=== PATIENT | male | born 1965 | race Caucasian/White ===

== ENCOUNTER 2023-03-05 14:42 | Outpatient (CLI) | payer BC, SELFPAY | END 2023-03-05 14:43 | disposition home or self-care (01) | PROVIDERS: PCP Family Medicine; Visit Provider Family Medicine | DX: I10 Essential (primary) hypertension (principal); E66.9 Obesity, unspecified; N32.0 Bladder-neck obstruction; Z13.1 Encounter for screening for diabetes mellitus; Z13.6 Encounter for screening for cardiovascular disorders | CPT/HCPCS: 80048; 80061; 84153 ==

== ENCOUNTER 2024-06-13 10:43 | Outpatient (CLI) | payer BC, SELFPAY | END 2024-06-13 10:44 | disposition home or self-care (01) | PROVIDERS: PCP Family Medicine; Visit Provider Family Medicine | DX: I10 Essential (primary) hypertension (principal); R97.20 Elevated prostate specific antigen [PSA]; Z12.5 Encounter for screening for malignant neoplasm of prostate | CPT/HCPCS: 80048; 84153 ==

== ENCOUNTER 2024-07-07 06:11 | Day surgery (SDC) | payer BC, SELFPAY ==
--- OUTSIDE RECORDS SUMMARY | 2024-07-07 06:15 | XMS_ITS | Data Portability ---
Author Organization MD - [facility] Address [address] [facility] [address] [place] [address] Care Team Providers Care Computer Systems Administrator Name Role Phone KHUSHBOO SETHI Primary Care Provider [phone] Assessment Encounter Date Assessment Date Assessment LastModified by Organization Details LastModified Time 03/20/2023 03/20/2023 57 Y/O MALE, SEEN FOR AND ELEVATED PSA OF 14. ALSO STRONG FAMILY HX FOR CAP. COLLIN 40G . MILD VOIDING SX.S. STARTED ON FLOMAX WITH SOME IMPROVEMENT. REVIEWED RECORDS, LABS PRESENT DURING INTERVIEW PLAN SCHEDULE TRUS /BX. OF THE PROSTATE.PROC EDURE EXPLAINED IN DETAIL. ALL QUESTIONS ANSWERED. Not available 03/20/2023 10:10:13 04/17/2023 04/17/2023 57 Y/O MALE, STRONG FAMILY HX FOR CAP. ELEVATED PSA OF 14. SIZE 60G. PSA DENSITY ELEVATED. TRUS/BX WENT WELL. PLAN RUTINE POST PROCEDURE INSTRUCTIONS, LIMITATIONS, SCRIPTS, WILL CALL RESULTS WHEN AVAILABLE. Not available 04/17/2023 10:00:34 Plan of Treatment Reminders Order Date Submit Date Provider Last Modified By Organization Details Last Modified Time Details Appointments None recorded. Lab None recorded. Referral None recorded. Procedures None recorded. Surgeries None recorded. Imaging None recorded. Medication Orders ceftriaxone 1 gram solution for injection 2022 023 [id number], [address] [place], [address], 09:52:56 Patient TargetsNo targets recorded. Patient Instructions Encounter Date Encounter Id Patient Instructions Last Modified By Organization Details Last Modified Time 04/17/2023 [id number] POST TRUS/BX PRECAUTIONS Not available 04/17/2023 10:01:07 Reason for Referral None Reported. Results Created Date Observation Date Name Description Value Unit Range Abnormal Flag Note LastModifiedBy Organization Detail LastModifiedTime Result Notes None recorded. Problems Name Problem SNOMED Code Status Onset Date Resolution Date Notes Provider Name and Address Organization Details Recorded Time Prostate specific antigen above reference range 588441183 Active 023 Prakash Baker MD [address] [place] [address],[address], [place], [address], [facility] 3 10:09:37 Problem Notes None recorded. Procedures Surgical History Date Name Laterality Status Provider Name and Address Organization Details Recorded Time 3 RU Prostate Bx completed Prakash Baker MD [address] [place] [address],[address], [place], [address] [place] [address], [facility] 04/17/2023 09:58:41 Colonoscopy completed Prakash Baker MD [address] [place] [address],[address], [place], [place], [address] [place] [address], [facility] 03/20/2023 09:33:43 Imaging Results None recorded. Procedure Notes None recorded. Medical Equipment None Reported. Allergies No known drug allergies Medications Name Sig Start Date Stop Date Status Note LastModified by Organization Details LastModified Time losartan 50 mg tablet TAKE 1 TABLET BY MOUTH EVERY DAY active Not Available Not Available No t Available ceftriaxone 1 gram solution for injection Take 1 g by injection route. 2022 active Not Available Not Available Not Avai lable tamsulosin 0.4 mg capsule TAKE 1 CAPSULE BY MOUTH EVERY DAY AT BEDTIME active Not Available Not Available N ot Available levofloxacin 500 mg tablet TAKE 1 TABLET EVERY 24 HOURS BY ORAL ROUTE DIRECTED FOR 3 DAYS. active Not Available Not Available No t Available Vitals Date Recorded Body height Provider Name an d Address Organization Details Last Updated DateTime 03/20/2023 177.8 cm Savanna Andrews [address] [place] [address],[address], [place], [address], [facility] 03/20/2023 09:32:15 Date Recorded Body mass index (BMI) Body weight Provider Name and Address Organization Details Last Updated DateTime 03/20/2023 36.6 kg/m2 550820.05 g Prakash Baker MD [address] [facility],[address], [place], [address], [facility] 03/20/2023 09:32:19 Date Recorded Body height Provider Name an d Address Organization Details Last Updated DateTime 04/17/2023 177.8 cm Ck Aleena [facility] 1 06/17/2022 09:48:15 Social History Question Answer Notes LastModified by Organizat ion Details LastModified Time Tobacco Smoking Status Former Smoker Prakash Baker MD [address] [facility],[address], [place], [address], [facility] 03/20/2023 09:33:38 What Is Your Level Of Alcohol Consumption? Occasional Information not available 03/20/2023 What Is Your Level Of Caffeine Consumption? Occasional Information not available 03/20/2023 When Did You Quit Smoking? 16+yearssincel astdominic Information not available 03/20/2023 What Was The Date Of Your Most Recent Tobacco Screening? 03/20/2023 Information not available 03/20/2023 Have You Ever Been Counseled For Unhealthy Alcohol Use? No Information not available 03/20/2023 Do You Use Any Illicit Or Recreational Drugs? No Information not available 03/20/2023 Has Tobacco Cessation Counseling Been Provided? No Information not available 03/20/2023 Do You Or Have You Ever Used Any Other Forms Of Tobacco Or Nicotine? No Information not available 03/20/2023 How Many Days In The Past Year Have You Consumed 5 Or More Drinks? 0 Information no t available 03/20/2023 Sex: Unknown Functional Status None recorded. Mental Status None recorded. Family History Relationship Description Onset Age of this Age Resolved Age Notes LastModified by Organization Details LastModified Time Father Family history of malignant neoplasm of prostate Not available 2022 09:33:05 Paternal Grandmother Family history of malignant neoplasm of prostate Not available 2022 09:33:05 Mother Malignant lymphoma Not available 2022 09:33:16 Brother Family history of malignant neoplasm of prostate Not available 2022 09:33:20 Medical History Condition Response Other N High Blood Pressure N Kidney Stones N Depression N Lung Disease N GERD/Acid Reflux N Sexually Transmitted Infection N Cancer N High Cholesterol Y Diabetes N Bleeding Disorder N Heart Disease N Past Encounters Encounter ID Performer Location Encounter Start Date Encounter Closed Date Diagnosis/Indication Diagnosis SNOMED-CT Code Diagnosis ICD10 Code Diagnosis Note [id number] MD ISSAC Andrews_Anna [address] [place] [address] 03/20/2023 09:19:20 03/30/2023 13:16:33 Prostate specific antigen above reference range 398790573 R97.20 Family his tory of malignant neoplasm of prostate 753473459 Z80.42 [id number] MD ISSAC Andrews_Anna [address] [place] [address] 04/17/2023 09:15:25 05/10/2023 09:04:47 Prostate specific antigen above reference range 834945246 R97.20 Health Concerns Section Related Observation LastModified by Organization Detai ls LastModified Time None Recorded Concern Status LastModified by Organization Details LastModified Time None Recorded Advance Directives Directive None Recorded Payers Encounter Date Sequence Insurance Name Policy Number Policy Bass Covered Member ID Bass Member ID Guarantor Name 03/20/2023 1 [facility] [employer] [employer] (PPO) [id number] Rosas Marlow [id number] Rosas Marlow 04/17/2023 1 [facility]) [id number] Rosas Marlow [id number] Rosas Marlow Notes Date Note Type Note Provider Name and Address Organization Details Recorded Time 03/20/2023 text/html PATIENT HERE FOR AN ELEVATED PSA OF 14.90. FAMILY HX FOR CAP. FATHER, BROTHER, UNCLE. VOIDING WELL, MILD FREQUENCY.JUST STARTED FLOMAX WITH SOME IMPROVEMENT. NORMAL COLONOCOPY 2 YRS AGO. Prakash Baker MD [address] [facility],[address], [place], [address], [facility] 03/20/2023 10:10:22 04/17/2023 text/html PATIENT HERE FOR AN ELEVATED PSA OF 14.90. FAMILY HX FOR CAP. FATHER, BROTHER, UNCLE. VOIDING WELL, MILD FREQUENCY.JUST STARTED FLOMAX WITH SOME IMPROVEMENT. NORMAL COLONOCOPY 2 YRS AGO. HERE FOR TRUS. Prakash Baker MD [address] [facility],[address], [place], [address], [facility] 05/09/2023 13:11:18
--- OUTSIDE RECORDS SUMMARY | 2024-07-07 06:15 | XMS_ITS | Clinical Summary ---
Author Organization [facility] Address [place], [place] [address] Care Team Providers Care Landscape Contractor Name Role Phone Alesha Segura MD Primary Care Provider [phone] Allergies No known active allergies Medications No known medications Active Problems Problem Noted Date Diagnosed Date Vitamin D deficiency 01/10/2012 Overview (02/01/2012): 20.2 Prostate nodule 02/21/2010 Mixed hyperlipidemia 02/21/2010 Obesity Family history of malignant neoplasm of prostate Family history of diabetes mellitus Immunizations Name Administration Dates Next Due HepA-HepB (Twinrix) 01/31/2012,03/30/2010,200908/01/2010 Hepatitis B (Adult) 08/10/2010 Influenza, IIV3 (Age >=3 years) 02/21/2010,04/07 Tdap 02/21/2010 Tuberculin (PPD) 02/21/2010 Family History Medical History Relation Name Comments Allergies Brother 5 Asthma Brother 6 Cancer-prostate Father Diabetes Father Cancer Son 3 Leukemia, had b one marrow transplant Relation Name Status Comments Brother 1 Alive Brother 2 Alive Brother 3 Alive Brother 4 Alive Brother 5 Brother 6 Daughter Alive Father Mother Alive Son 1 Alive Son 2 Alive Son 3 Social History Tobacco Use Types Packs/Day Years Used Date Smoking Tobacco: Never Smokeless Tobacco: Never Alcohol Use Standard Drinks/Week Comments Yes 4.2 (1 standard drink = 0.6 oz p ure alcohol) Sex and Gender Information Value Date Recorded Sex Assigned at Not on file Legal Sex Male 6:50 AM [employer]PER[employer] Gender Identity Not on file Sexual Orientation Not on file 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 Not on file Not on becka e Obstetrics History Last Filed Vital Signs Vital Sign Reading Time Taken Comments Blood Pressure 128/88 02/09/2012 3:57 PM CDT Pulse 80 02/09/2012 3:57 PM CDT Temperature - - Respiratory Rate - - Oxygen Saturation - - Inhaled Oxygen Concentration - - Weight 106.6 kg (235 lb) 01/31/2012 8:00 AM CDT Height 175.3 cm (5' 9) 01/31/2012 8:00 AM CDT Body Mass Index 34.7 01/31/2012 8:00 AM CDT Plan of Treatment Health Maintenance Due Date Last Done Comments Depression screening for age 12+ 1977 HIV for age 15-65 1980 BMI (ht and wt on same day) for age 18+ 1983 Hepatitis C screening for ag e 18-79 1983 Colonoscopy through age 75 2010 Pneumococcal series for age 50+ (1 of 1 - PCV) 2015 Zoster (shingles) series for age 50+ (1 of 2) 2015 Lipids for age 45-75 01/30/2017 01/31/2012, 02/21/2010 Tetanus booster 02/22/2020 02/21/2010 COVID-19 vaccine series ( season) 2024 10/29/2020, 10/08/2020 Influenza for age 50-64 02/10/2024 02/22/20 10, 04/07/2008 Tdap Completed 02/21/2010 Pneumococcal series for age 6-49 Aged Out No longer eligible b ased on patient's age to complete this topic Procedures Procedure Name Priority Date/Time Associated Diagnosis Comments LIPID PANEL W REFLEX MEASURED LDL Routine 01/31/2012 8:37 AM CDT Mixed hyperlipidemia from Last 3 Months or Most Recently Relevant to Health Maintenance Results * (ABNORMAL) LIPID PANEL W REFLEX MEASURED LDL (01/31/2012 8:37 AM CDT) CHOLESTEROL,TOTAL 217(H) 100 - 199 mg/dL [facility] TRIGLYCERIDES 160(H) <150 mg/dL [facility] HDL CHOLESTEROL 37(L) >40 mg/dL [facility] CHOL/HDL RATIO 5.87(H) <4.50 [facility] LDL CHOLESTEROL 148(H) <131 mg/dL [facility] PATIENT STATUS Fasting [facility] Blood specimen (specimen) BLOOD SPECIMEN / Unknown 01/31/2012 8:37 AM CDT 01/31/2012 8:29 AM CDT us Alesha Segura MD CHEMISTRY Final Res ult [facility] [place] [place] [id number] from Last 3 Months or Most Recently Relevant to Health Maintenance Care Teams Landscape Contractor Relationship Specialty Start Date End Date Alesha Segura MD [address] [address] PCP - General 10/11/07
[2024-07-07 06:19] VITALS: BMI 39.9
[2024-07-07 06:35] VITALS: BP 152/102; PULSE 87; RESP 16; TEMP 36.8; O2SAT 96
[2024-07-07] MEDS: 0.9 % SODIUM CHLORIDE 500 ML 500 ML 100 ML IV ×2 (06:35→07:49)
[2024-07-07] MEDS: SODIUM CHLORIDE 0.9 % (FLUSH) 10 ML SYRINGE IVF (06:35)
--- NOTE | 2024-07-07 07:18 | W.PM.H&PU ---
History & Physical Update History & Physical Update H&P Reviewed and patient assessed: No changes noted H&P Updates: Discussed case with anesthesia. Patient's brother has history of malignant hyperthermia. Will plan on getting with monitored anesthesia care.
[2024-07-07] MEDS: CEFAZOLIN 2 GM INJ IVP (07:30)
[2024-07-07] MEDS: BUPIVACAINE 0.25% 30 ML INJECTION (07:36)
--- NOTE | 2024-07-07 08:41 | PM.GSPRC ---
Operative Note Date of procedure: 07/07/24 Pre-op diagnosis: Incarcerated umbilical hernia Post-op diagnosis: Same Type of Procedure: Open repair 2 cm incarcerated umbilical hernia with mesh. Indications: Patient is a 59-year-old male who presented to clinic with a longstanding history of an umbilical hernia. This is been somewhat more symptomatic for him and after discussion, he elected to proceed with repair. Procedure Description: After discussing the risks and benefits of the procedure, the patient signed informed consent.? The operative site was marked and the patient was brought to the operating room and placed on the operating table in supine position.? Care was taken to pad the patient's pressure points.?? The patient was then given sedation by anesthesia.?? The operative site was then prepped and draped in the usual sterile fashion.? A time-out was then performed. Local anesthetic was injected into the fascia, skin and subcutaneous tissues. A curvilinear incision was made just at the superior aspect of the umbilicus. Dissection was carried down into the subcutaneous tissue using cautery. The hernia was encountered. There were 2 lobules herniated fat, 1 that was extending inferior to the umbilicus. Both of these appeared to come from the same fascial defect. No other fascial defects were noted. Once these were dissected free from the surrounding subcutaneous tissue and umbilical stalk, I was able to reduce the tissue. The hernia measured 2 cm, therefore I elected to use mesh. Additional local anesthetic was injected into the fascia and preperitoneal tissue. The fascial edges were cleared and a preperitoneal pocket was created using cautery and blunt dissection. The mesh was then placed into this space. It was secured in place using 2 0 PDS suture. The tails were then trimmed from the mesh and the fascial opening was closed with a running 0 PDS suture. The umbilicus was reapproximated to the fascia. The skin was then closed with running absorbable suture. Glue was then applied. ? The patient was then woken and transported to the recovery area in stable condition. ? The patient tolerated the procedure well. Findings: 2 cm fat containing umbilical hernia Implants: Bard Ventralex ST mesh Surgeon: Carol Macias MD Estimated blood loss (mL): 5 Condition: stable Disposition: PACU
[2024-07-07 08:49] VITALS: BP 126/94; PULSE 86; RESP 20; TEMP 36.2; O2SAT 96
--- NOTE | 2024-07-07 08:49 | P.ANES_ITS ---
Anesthesia Charges Start Date/Time Anesthesia Start Date: 07/07/24 Anesthesia Start Time: 07:21 Stop Date/Time Anesthesia Stop Date: 07/07/24 Anesthesia Stop Time: 08:49 Coding CPT Codes CPT Codes: ANESTH REPAIR OF HERNIA - 26428 ([id number]) P3 - PATIENT W/SEVERE SYS DISEASE, QX - UROLOGY NURSE SVC W/ MD MED DIRECTION, QK - NEEDLE PROCESS FELT GOODS SUPERVISOR 2-4 CNCRNT ANES PROC
--- NOTE | 2024-07-07 08:49 | W.ANESCHARGE ---
Anesthesia Charges Start Date/Time Anesthesia Start Date: 07/07/24 Anesthesia Start Time: 07:21 Stop Date/Time Anesthesia Stop Date: 07/07/24 Anesthesia Stop Time: 08:49 Coding CPT Codes CPT Codes: ANESTH REPAIR OF HERNIA - 45497 ([id number]) P3 - PATIENT W/SEVERE SYS DISEASE, QX - SENIOR CLINICAL SAS PROGRAMMER SVC W/ MD MED DIRECTION, QK - TECHNOLOGY INTEGRATION SPECIALIST 2-4 CNCRNT ANES PROC
[2024-07-07 09:00] VITALS: BP 122/83; PULSE 77; RESP 18; O2SAT 94
--- NOTE | 2024-07-07 09:05 | P.ANES_ITS ---
Anesthesia Charges Start Date/Time Anesthesia Start Date: 07/07/24 Anesthesia Start Time: 07:21 Stop Date/Time Anesthesia Stop Date: 07/07/24 Anesthesia Stop Time: 08:49 Coding CPT Codes CPT Codes: ANESTH REPAIR OF HERNIA - 43573 ([id number]) QK - STEAMTABLE ATTENDANT RAILROAD 2-4 CNCRNT ANES PROC, QX - INSIDE B2B SALES SVC W/ MD MED DIRECTION, P3 - PATIENT W/SEVERE SYS DISEASE
--- NOTE | 2024-07-07 09:05 | W.ANESCHARGE ---
Anesthesia Charges Start Date/Time Anesthesia Start Date: 07/07/24 Anesthesia Start Time: 07:21 Stop Date/Time Anesthesia Stop Date: 07/07/24 Anesthesia Stop Time: 08:49 Coding CPT Codes CPT Codes: ANESTH REPAIR OF HERNIA - 35060 ([id number]) QK - SPECIAL EDUCATION INSTRUCTOR 2-4 CNCRNT ANES PROC, QX - HIV COUNSELOR SVC W/ MD MED DIRECTION, P3 - PATIENT W/SEVERE SYS DISEASE
[2024-07-07 09:15] VITALS: BP 120/87; PULSE 79; RESP 18; O2SAT 95
== END 2024-07-07 09:35 | disposition home or self-care (01) ==
PROVIDERS: PCP Family Medicine; Visit Provider Surgery
PROC: (CPT 49592; principal; 2024-07-07 07:30)
DX: K42.0 Umbilical hernia with obstruction, without gangrene (principal)
CPT/HCPCS: 49592; 00830; A4467; C1781; J0665; J0690; J1100; J1885; J2250; J2405; J2704; J3010; J3490; J7030